=== PATIENT | female | born 1980 | race Caucasian/White ===

== ENCOUNTER 2019-04-25 18:37 | Emergency (ER) | payer OTHER ==
[~2019-04-25] VITALS: Ht 162.5 cm
[2019-04-25] MEDS ORDERED: MEDROL DOSEPAK4 MG PO ×2 (20:01→20:12)
[2019-04-25] MEDS ORDERED: DOXYCYCLINE100 M3 PO ×2 (20:01→20:12)
[2019-04-25] MEDS ORDERED: Ipratropium Brom3 ML INH (20:12)
[2019-04-25] MEDS ORDERED: GUAIFEN-CODEIN118 ML PO (20:13)
== END 2019-04-25 20:04 | disposition home or self-care (01) ==
LOC: ED 18:37
DX: J45.909 Unspecified asthma, uncomplicated (principal); Z91.040 Latex allergy status

== ENCOUNTER 2019-05-30 19:17 | Emergency (ER) | payer OTHER ==
[~2019-05-30] VITALS: Ht 162.5 cm; Wt 129.7 kg
[~2019-05-30 19:17] MED LIST: DOXYCYCLINE100 M3 PO; GUAIFEN-CODEIN118 ML PO; Ipratropium Brom3 ML INH; MEDROL DOSEPAK4 MG PO
[2019-05-30] MEDS ORDERED: TESSALON PERLE100 M1 PO (20:07)
[2019-05-30] MEDS ORDERED: FLONASE ALLERG9.9 ML NAS (20:07)
[2019-05-30] MEDS ORDERED: SEPTDS PO (20:07)
== END 2019-05-30 20:23 | disposition home or self-care (01) ==
LOC: ED 19:17
DX: J32.9 Chronic sinusitis, unspecified (principal); Z88.8 Allergy status to other drugs, medicaments and biological substances; Z91.040 Latex allergy status; Z79.2 Long term (current) use of antibiotics; Z79.899 Other long term (current) drug therapy

== ENCOUNTER 2019-06-16 14:18 | Emergency (ER) | payer OTHER ==
[~2019-06-16] VITALS: Ht 162.5 cm; Wt 131.5 kg
[~2019-06-16 14:18] MED LIST changes: +FLONASE ALLERG9.9 ML NAS; +SEPTDS PO; +TESSALON PERLE100 M1 PO
[2019-06-16] MEDS ORDERED: AUGMENTIN 875-875 MG PO (14:44)
[2019-06-16] MEDS ORDERED: CLARITIN10 MG PO (14:44)
== END 2019-06-16 15:09 | disposition home or self-care (01) ==
LOC: ED 14:18
DX: H65.01 Acute serous otitis media, right ear (principal); J01.00 Acute maxillary sinusitis, unspecified; J02.9 Acute pharyngitis, unspecified; Z91.040 Latex allergy status; Z88.8 Allergy status to other drugs, medicaments and biological substances

== ENCOUNTER 2019-07-20 13:18 | Inpatient (IN) | payer OTHER ==
[~2019-07-20] VITALS: Ht 162.5 cm; Wt 131.5 kg
[~2019-07-20 13:18] MED LIST changes: +AUGMENTIN 875-875 MG PO; +CLARITIN10 MG PO
[2019-07-20 13:19] VITALS: BP 137/90
[2019-07-20 14:05] LABS: BASO % 0.8 % (0.0-1.0); EOS # 0.1 10*3/uL (0.0-0.4); EOS % 2.4 % (1.0-4.0); HEMATOCRIT 36.9 % (37.0-47.0); HEMOGLOBIN 12.2 g/dl (12.0-16.0); LYMPH # 0.8 10*3/uL (1.3-4.4); LYMPH % 16.6 % (27.0-41.0); MEAN CELL VOLUME 86.8 fl (81.0-99.0); MEAN CORPUSCULAR HGB 28.7 pg (27.0-31.0); MEAN CORPUSCULAR HGB CONC 33.1 g/dl (33.0-37.0); MEAN PLATELET VOLUME 8.3 fl (9.6-12.3); MONO # 0.3 10*3/uL (0.1-1.0); MONO % 6.7 % (3.0-9.0); NEUT # 3.7 10*3/uL (2.3-7.9); NEUT % 72.9 % (47.0-73.0); PLATELET COUNT AUTOMATED 318 10*3/uL (130-400); RED BLOOD COUNT 4.25 10*6/uL (4.10-5.10); RED CELL DISTRI WIDTH 15.4 % (0-14.5); WHITE BLOOD COUNT 5.1 10*3/uL (4.8-10.8)
[2019-07-20 14:21] LABS: ALBUMIN 3.3 gm/dl (3.1-4.5); ALKALINE PHOSPHATASE 102 U/L (45-117); BUN 10 mg/dl (7-24); CHLORIDE 101 mmol/L (98-107); CREATININE 0.87 mg/dL (0.55-1.02); POTASSIUM 3.4 mmol/L (3.5-5.1); SGOT/AST 30 IU/L (3-35); SGPT/ALT 35 U/L (12-78); SODIUM 138 mmol/L (136-145); TOTAL PROTEIN 7.2 gm/dL (6.4-8.2)
[2019-07-20 14:29] VITALS: BP 137/91
[2019-07-20 15:18] VITALS: BP 113/62
[2019-07-20 16:29] VITALS: BP 126/58
[2019-07-20] MEDS ORDERED: ULTRAM50 MG PO (16:36)
[2019-07-20] MEDS ORDERED: BUSPAR5 MG PO (16:37)
[2019-07-20] MEDS ORDERED: TIZANIDINE HCL4 MG PO (16:37)
[2019-07-20] MEDS ORDERED: GEODON40 MG PO (16:38)
[2019-07-20] MEDS ORDERED: GEODON60 MG PO (16:39)
[2019-07-20] MEDS ORDERED: LUNESTA3 M1 PO (16:39)
[2019-07-20] MEDS ORDERED: LAMICTAL200 MG PO (16:39)
[2019-07-20] MEDS ORDERED: SINGULAIR10 M1 PO (16:40)
[2019-07-20] MEDS ORDERED: FLONASE ALLERG9.9 ML NAS (16:41)
[2019-07-20] MEDS ORDERED: VOLTAREN100 GM T (16:42)
[2019-07-20] MEDS ORDERED: PRAZOSIN HCL2 MG PO (16:42)
[2019-07-20] MEDS ORDERED: IMURAN50 MG PO (16:43)
[2019-07-20] MEDS ORDERED: ASHLYNA 0.15-01 EAC1 PO (16:44)
[2019-07-20] MEDS ORDERED: XANAX1 MG PO (16:44)
[2019-07-20] MEDS ORDERED: HUMIRA CRO40 MG/0.8 SQ (16:45)
[2019-07-20] MEDS ORDERED: NORVASC5 MG PO (16:46)
[2019-07-20] MEDS ORDERED: ZYRTEC10 MG PO (16:48)
[2019-07-20] MEDS ORDERED: SUPHEDRIN PO (16:48)
[2019-07-20] MEDS ORDERED: NABUMETONE750 M1 PO (16:49)
[2019-07-20] MEDS ORDERED: LINZESS290 MC1 PO (16:50)
[2019-07-20] MEDS ORDERED: AZULFIDINE500 M1 PO (16:50)
[2019-07-20] MEDS ORDERED: OMEPRAZOLE40 MG PO (16:51)
[2019-07-20] MEDS ORDERED: MULTI-VITAMIN1 EACH PO (16:53)
[2019-07-20] MEDS ORDERED: PRENATAL VITAM1 EAC4 PO (16:54)
[2019-07-20] MEDS ORDERED: MEGA BIOTIN10000 MCG PO (16:55)
[2019-07-20] MEDS ORDERED: VITAMIN D-32000 UNI1 PO (16:55)
[2019-07-20 20:00] VITALS: BP 142/69
[2019-07-21] VITALS: BP 133/77
[2019-07-21 07:32] LABS: ALBUMIN 2.9 gm/dl (3.1-4.5); BUN 7 mg/dl (7-24); CHLORIDE 104 mmol/L (98-107); CHOLESTEROL 175 mg/dL (<200); CREATININE 0.64 mg/dL (0.55-1.02); FREE T4 1.04 ng/dl (0.76-1.46); HDL CHOLESTEROL 53 mg/dl (40-60); LDL CHOLESTEROL 102 mg/dL (9-159); PHOSPHOROUS 2.7 mg/dL (2.5-4.9); POTASSIUM 3.4 mmol/L (3.5-5.1); SGOT/AST 20 IU/L (3-35); SGPT/ALT 27 U/L (12-78); SODIUM 138 mmol/L (136-145); TOTAL PROTEIN 6.4 gm/dL (6.4-8.2); TRIGLYCERIDES 100 mg/dl (<150); VLDL CHOLESTEROL 20 mg/dL (6-40)
[2019-07-21 07:37] LABS: ALKALINE PHOSPHATASE 90 U/L (45-117)
[2019-07-21 08:00] VITALS: BP 128/68
[2019-07-21] MEDS ORDERED: BUSPIRONE30 MG PO (08:00)
[2019-07-21 08:28] LABS: BASO % 0.4 % (0.0-1.0); EOS % 0.6 % (1.0-4.0); HEMATOCRIT 33.3 % (37.0-47.0); HEMOGLOBIN 10.7 g/dl (12.0-16.0); LYMPH # 1.3 10*3/uL (1.3-4.4); LYMPH % 26.8 % (27.0-41.0); MEAN CELL VOLUME 88.8 fl (81.0-99.0); MEAN CORPUSCULAR HGB 28.5 pg (27.0-31.0); MEAN CORPUSCULAR HGB CONC 32.1 g/dl (33.0-37.0); MEAN PLATELET VOLUME 8.6 fl (9.6-12.3); MONO # 0.3 10*3/uL (0.1-1.0); MONO % 6.8 % (3.0-9.0); NEUT # 3.1 10*3/uL (2.3-7.9); PLATELET COUNT AUTOMATED 265 10*3/uL (130-400); RED BLOOD COUNT 3.75 10*6/uL (4.10-5.10); RED CELL DISTRI WIDTH 15.6 % (0-14.5); WHITE BLOOD COUNT 4.7 10*3/uL (4.8-10.8)
[2019-07-21 08:42] LABS: VITAMIN D, 25-HYDROXY 37.4 ng/mL (30-100)
[2019-07-21 12:00] VITALS: BP 117/82
[2019-07-21 16:00] VITALS: BP 151/95
[2019-07-21 20:00] VITALS: BP 128/67
[2019-07-22] VITALS: BP 130/69
[2019-07-22 08:00] VITALS: BP 142/76
[2019-07-22 12:00] VITALS: BP 100/83
[2019-07-22 14:29] LABS: ABG BASE EXCESS 3.8 mmol/L (-2.0-2.0); ARTERIAL BLOOD GAS PH 7.42 (7.35-7.45)
[2019-07-22 16:00] VITALS: BP 142/83
[2019-07-22 20:00] VITALS: BP 152/75
[2019-07-23] VITALS: BP 128/71
[2019-07-23 08:00] VITALS: BP 130/70; BP 132/75
[2019-07-23 12:00] VITALS: BP 145/68
[2019-07-23 16:00] VITALS: BP 150/98
[2019-07-23 20:00] VITALS: BP 140/88
[2019-07-24] VITALS: BP 142/85
[2019-07-24 07:04] LABS: CREATININE 0.74 mg/dL (0.55-1.02)
[2019-07-24 07:08] LABS: BASO % 0.2 % (0.0-1.0); HEMATOCRIT 37.1 % (37.0-47.0); HEMOGLOBIN 11.6 g/dl (12.0-16.0); LYMPH # 1.7 10*3/uL (1.3-4.4); LYMPH % 19.5 % (27.0-41.0); MEAN CELL VOLUME 88.3 fl (81.0-99.0); MEAN CORPUSCULAR HGB 27.6 pg (27.0-31.0); MEAN CORPUSCULAR HGB CONC 31.3 g/dl (33.0-37.0); MEAN PLATELET VOLUME 8.5 fl (9.6-12.3); MONO # 0.5 10*3/uL (0.1-1.0); MONO % 5.5 % (3.0-9.0); NEUT # 6.4 10*3/uL (2.3-7.9); NEUT % 72.5 % (47.0-73.0); PLATELET COUNT AUTOMATED 408 10*3/uL (130-400); WHITE BLOOD COUNT 8.8 10*3/uL (4.8-10.8)
[2019-07-24 07:30] VITALS: BP 140/80
[2019-07-24 11:57] VITALS: BP 150/86
[2019-07-24 16:00] VITALS: BP 152/99
[2019-07-24 21:28] VITALS: BP 134/110
[2019-07-25] VITALS: BP 146/70
[2019-07-25 08:00] VITALS: BP 152/90
[2019-07-25] MEDS ORDERED: ROBITUSSIN AC PO (12:49)
[2019-07-25] MEDS ORDERED: [UNRECOGNIZED DRUG - OTHER] PO (12:49)
[2019-07-25] MEDS ORDERED: ZITHROMAX250 MG PO (12:49)
[2019-07-25] MEDS ORDERED: PREDNISONE10 MG PO (12:49)
[2019-07-26 00:06] LABS: ADENOVIRUS Negative (Negative); INFLUENZA A Negative (Negative); INFLUENZA B Negative (Negative); METAPNEUMOVIRUS Positive (Negative); PARAINFLUENZA 1 Negative (Negative); PARAINFLUENZA 2 Negative (Negative); PARAINFLUENZA 3 Negative (Negative); RHINOVIRUS Negative (Negative); RSV A Negative (Negative); RSV B Negative (Negative)
== END 2019-07-25 15:11 | disposition home or self-care (01) | DRG 871 ==
LOC: ED 13:18 → 4E 15:00 → EDHOLD 15:00 → 4E 15:35
PROVIDERS: Internal Medicine Critical Care Medicine; Nurse Practitioner Family; Registered Nurse; ADMIT Internal Medicine
DX: A41.9 Sepsis, unspecified organism (principal); J15.6 Pneumonia due to other Gram-negative bacteria; J96.01 Acute respiratory failure with hypoxia; J45.901 Unspecified asthma with (acute) exacerbation; E44.0 Moderate protein-calorie malnutrition; M35.8 Other specified systemic involvement of connective tissue; Z68.42 Body mass index [BMI] 45.0-49.9, adult; J44.1 Chronic obstructive pulmonary disease with (acute) exacerbation; J44.0 Chronic obstructive pulmonary disease with (acute) lower respiratory infection; J20.9 Acute bronchitis, unspecified; R65.20 Severe sepsis without septic shock; E87.6 Hypokalemia; E66.01 Morbid (severe) obesity due to excess calories; M06.9 Rheumatoid arthritis, unspecified; F31.9 Bipolar disorder, unspecified; J30.2 Other seasonal allergic rhinitis; F43.10 Post-traumatic stress disorder, unspecified; Z88.8 Allergy status to other drugs, medicaments and biological substances; Z91.040 Latex allergy status; Z82.61 Family history of arthritis; Z79.899 Other long term (current) drug therapy